=== PATIENT | male | born 1955 | race Caucasian/White ===

== ENCOUNTER 2020-10-23 19:04 | Emergency (ER) | payer OTHER, SELFPAY ==
--- NOTE | 2020-10-23 19:12 | ED.DENTAL ---
HPI - Dental/Oral General Chief complaint: Dental/Oral Stated complaint: gum line pain Time Seen by Provider: 10/23/20 19:41 Source: patient and RN notes reviewed Mode of arrival: ambulatory Limitations: no limitations History of Present Illness HPI Narrative: 65-year-old male presents with concern for possible foreign body in his gum. He reports several days ago he seemed to get a piece of food, it Peppercorn, stuck in his gumline. He reports it is causing his gumline to be swollen and painful. He denies trouble breathing, difficulty swallowing, swollen tongue, fever. While the patient was in triage he reports he was able to remove the foreign body and it was a piece of chipped tooth. He reports the gumline is still swollen, painful MD Complaint: tooth pain Related Data Home Medications Medication Instructions Recorded Confirmed atorvastatin 40 mg tablet 40 mg PO DAILY 10/23/20 glipizide 5 mg tablet 5 mg PO DAILY 10/23/20 lisinopril 20 mg tablet 20 mg PO DAILY 10/23/20 oxybutynin chloride 5 mg 5 mg PO DAILY 10/23/20 tablet,extended release 24 hr temazepam 30 mg capsule 30 mg PO QHS PRN 10/23/20 Allergies Allergy/AdvReac Type Severity Reaction Status Date / Time No Known Allergies Allergy Mild Verified 10/23/20 14:44 Review of Systems Review of Systems: Narrative: CONSTITUTIONAL: Denies malaise, chills, sweats, or fever. ENT: Denies fullness, swollen tongue, difficulty swallowing. Reports foreign body in the gumline under tooth #32 which she was able to remove, has a swollen, painful gumline surrounding the foreign body RESPIRATORY: Denies dyspnea. SKIN: Denies rash or itching. MUSCULOSKELETAL: Denies myalgia. NEUROLOGIC: Denies numbness, weakness, or headache. All systems reviewed & are unremarkable except as noted in HPI and below PMFSH Past Medical History Medical History (Updated 10/23/20 @ 19:59 by Freida Nunez NP) Diabetes High cholesterol Hypertension Surgical History Surgical History (Updated 10/23/20 @ 14:48 by Chen Romeo) Above knee amputation of right lower extremity S/P laparoscopy S/P left inguinal hernia repair Family History Family History (Updated 10/23/20 @ 14:48 by Chen Romeo) Father Diabetes mellitus Unknown Diabetes mellitus Hypertension Kidney disease Social History Social History (Updated 10/23/20 @ 14:48 by Chen Romeo) Smoking status: Former smoker Alcohol intake: never Comments At time of signature, agree with nursing past medical, surgical, social and family history. There is no relevant family history pertinent to the presenting complaint Exam Narrative: Exam Narrative: GENERAL: Well-appearing, well-nourished, and in no acute distress. HEAD: Normocephalic, atraumatic. EYES: PERRLA, conjunctivae clear ENT: Nares clear. Mucous membranes moist. Oropharynx without edema, erythema or lesions. Tonsils not enlarged and without exudate. Broken teeth, caries under tooth number 32 next to the tongue a white foreign body was noted, patient was able to remove the foreign body, the area remains erythematous, edematous. No other foreign body noted NECK: Supple. CHEST: No respiratory distress. Speaks in full sentences. HEART: Regular rate and rhythm. SKIN: Warm, dry, no rash. NEURO: Alert and oriented x3. PSYCH: Normal mood and affect Course Course Emergency Course: Patient is aware of diagnosis, understands and agrees to treatment plan. Anticipatory guidance given. Patient agrees to follow-up as directed and is aware of reasons to seek care at the emergency department. Portions of this record may have been created with voice recognition software Vital Signs Vital signs: Reviewed. MDM - Dental/Oral MDM Narrative Medical decision making narrative: Exam findings show no acute concerns or changes; patient is non-toxic appearing and is in no distress. Patient is appropriate for outpatient treatment and follow-up.
[2020-10-23 19:13] VITALS: BP 152/85; PULSE 102; RESP 16; TEMP 37.3; O2SAT 99
== END 2020-10-23 20:01 | disposition home or self-care (01) ==
PROVIDERS: Emergency Provider Nurse Practitioner
DX: S00.552A Superficial foreign body of oral cavity, initial encounter (principal); X58.XXXA Exposure to other specified factors, initial encounter; E11.9 Type 2 diabetes mellitus without complications; E78.00 Pure hypercholesterolemia, unspecified; I10 Essential (primary) hypertension; Z89.611 Acquired absence of right leg above knee; Z87.891 Personal history of nicotine dependence
CPT/HCPCS: 99213; G0463

== ENCOUNTER → 2020-11-26 15:26 | Outpatient (CLI) | payer OTHER, SELFPAY ==
--- NOTE | ~2020-11-26 | US_ITS ---
EXAMINATION: US soft tissue groin LT DATE: 11/26/2020 16:00 INDICATION: Left groin lump. TECHNIQUE: Multiple grayscale and Doppler ultrasound images of the left inguinal region were obtained . COMPARISON: None FINDINGS: There is a normal lymph node in the patient's area of concern in left inguinal region. No s pecific evidence of a hernia. IMPRESSION: 1. No abnormal mass or lymphadenopathy in the patient's area of concern in left inguinal region. Reviewed, dictated and finalized at location A.
== END ==
PROVIDERS: PCP Family Medicine Adolescent Medicine; Visit Provider Surgery
DX: R22.2 Localized swelling, mass and lump, trunk (principal)
CPT/HCPCS: 76882

== ENCOUNTER 2021-03-21 12:28 | Emergency (ER) | payer OTHER, SELFPAY ==
[2021-03-21 12:42] VITALS: BP 164/82; PULSE 101; RESP 16; TEMP 36.3; O2SAT 98
--- NOTE | 2021-03-21 12:43 | ED.SKABFB ---
HPI - Skin/Abscess/Foreign Bdy General Chief complaint: Skin/Abscess/Foreign Body Stated complaint: spider bite Time Seen by Provider: 03/21/21 13:07 Source: patient and RN notes reviewed Mode of arrival: ambulatory Limitations: no limitations History of Present Illness HPI narrative: 66-year-old male presents with concern for possible bites on his left hand. He reports he noticed the areas yesterday. Reports 3 itchy spots on his left hand. He denies pain, drainage, surrounding redness or warmth. Reports he put nail turkish on the spots to stop the itching. He denies any general malaise, fever. He denies any known injury or trauma. MD complaint: insect bite/sting Related Data Home Medications Medication Instructions Recorded Confirmed atorvastatin 40 mg tablet 40 mg PO DAILY 10/23/20 10/28/20 glipizide 5 mg tablet 5 mg PO DAILY 10/23/20 10/28/20 lisinopril 20 mg tablet 20 mg PO DAILY 10/23/20 10/28/20 oxybutynin chloride 5 mg 5 mg PO DAILY 10/23/20 10/28/20 tablet,extended release 24 hr temazepam 30 mg capsule 30 mg PO QHS PRN 10/23/20 10/28/20 Allergies Allergy/AdvReac Type Severity Reaction Status Date / Time No Known Allergies Allergy Mild Verified 10/23/20 14:44 Review of Systems Review of Systems: CONSTITUTIONAL: Denies malaise, chills, sweats, or fever. ENT: Denies polyps, swelling, CARDIOVASCULAR: Denies chest pain, palpitations, or edema. RESPIRATORY: Denies cough or dyspnea. SKIN: Reports 3 red raised itchy spots on the left hand MUSCULOSKELETAL: Denies muscle skeletal pain or or myalgia. NEUROLOGIC: Denies numbness, weakness All systems reviewed & are unremarkable except as noted in HPI and below PMFSH Past Medical History Medical History (Updated 03/21/21 @ 13:21 by Freida Nunez NP) Diabetes High cholesterol Hypertension Surgical History Surgical History Above knee amputation of right lower extremity S/P laparoscopy S/P left inguinal hernia repair Family History Family History Father Diabetes mellitus Unknown Diabetes mellitus Hypertension Kidney disease Social History Social History Smoking status: Former smoker Alcohol intake: never Comments At time of signature, agree with nursing past medical, surgical, social and family history. There is no relevant family history pertinent to the presenting complaint Exam Narrative: GENERAL: Well-appearing, well-nourished, and in no acute distress. HEAD: Normocephalic, atraumatic. EYES: PERRLA, conjunctivae clear ENT: Mucous membranes moist. NECK: Supple. No lymphadenopathy CHEST: Clear to auscultation. No respiratory distress. HEART: Regular rate and rhythm. SKIN: Warm, dry. 3 erythematous papules noted to the left hand, 2 on the first digit, 1 on the second digit. No fluctuation, induration, redness noted NEURO: Alert and oriented x3. PSYCH: Normal mood and affect Course Course Emergency Course: Patient is aware of diagnosis, understands and agrees to treatment plan. Anticipatory guidance given. Patient agrees to follow-up as directed and is aware of reasons to seek care at the emergency department. Portions of this record may have been created with voice recognition software Vital Signs Vital signs: Reviewed. Patient has history of hypertension MDM - Skin/Abscess/Foreign Bdy MDM Narrative Medical decision making narrative: Does not appear at this time to be erythema multiforme, bullous, SJS, TEN; no evidence at this time to suggest RMSF, endocarditis or Lyme disease; patient looks well, nontoxic and is tolerating oral intake; no neurologic signs or symptoms; no headache, photophobia or neck pain; afebrile; appropriate for initial outpatient treatment; discussed the importance of follow-up, patient agrees; question, viral exanthema, contact dermatitis
== END 2021-03-21 13:27 | disposition home or self-care (01) ==
PROVIDERS: Emergency Provider Nurse Practitioner
DX: S60.562A Insect bite (nonvenomous) of left hand, initial encounter (principal); W57.XXXA Bitten or stung by nonvenomous insect and other nonvenomous arthropods, initial encounter; E11.9 Type 2 diabetes mellitus without complications; E78.00 Pure hypercholesterolemia, unspecified; I10 Essential (primary) hypertension
CPT/HCPCS: 99213; G0463

== ENCOUNTER 2021-12-13 15:21 | Outpatient (CLI) | payer OTHER, SELFPAY ==
--- NOTE | ~2021-12-13 | US_ITS ---
EXAMINATION: US soft tissue head and neck DATE: 12/13/2021 15:59 INDICATION: Right posterior neck lump TECHNIQUE: Multiple grayscale and Doppler ultrasound images of the region of concern at the posterior right side of the neck were obtained. COMPARISON: None FINDINGS: 3.0 x 2.2 x 0.8 cm fusiform mass in the subcutaneous tissues at the region of concern. The mass is is oechoic and with similar echotexture and internal septated architecture as the surrounding subcutaneo us fat. IMPRESSION: 1. Nonspecific 3.0 x 2.2 x 0.8 cm diffuse form subcutaneous mass at the region of concern with appear ance most consistent with and statistically most likely to represent a lipoma. Reviewed, dictated and finalized at location A. IMPRESSION: 1. Nonspecific 3.0 x 2.2 x 0.8 cm diffuse form subcutaneous mass at the region of concern with appearance most consistent with and statistically most likely t o represent a lipoma.
== END 2021-12-13 15:22 | disposition home or self-care (01) ==
PROVIDERS: PCP Family Medicine Adolescent Medicine; Visit Provider Physician Assistant
DX: R22.1 Localized swelling, mass and lump, neck (principal)
CPT/HCPCS: 76536

== ENCOUNTER 2024-02-16 05:14 | Day surgery (SDC) | payer OTHER, SELFPAY ==
[2024-02-12 13:16] VITALS: BMI 29.7
[2024-02-16 12:26] VITALS: BP 128/75; PULSE 111; RESP 20; TEMP 36.4; O2SAT 96
[2024-02-16 12:29] LABS: Glucose Point of Care 186 mg/dl (65-105)
[2024-02-16] MEDS: LACTATED RINGERS 1,000 ML 150 ML IV CONT (12:38)
--- NOTE | 2024-02-16 12:48 | P.PNAN_ITS ---
Anes - Initial Pre Proc Eval Procedure: Operation Date: 02/16/24 13:30 Proposed Procedures p Colonoscopy - Rohit Huggins MD Date/Time: 02/16/24 12:48 Surgeon: Rohit Huggins MD Pre Op Diagnosis: Fecal Abnormalities Patient Data Age: 69 Gender: M Height: 1.7 m Weight: 72.1 kg Last Vital Signs Temp 36.4 C L 02/16/24 12:26 Pulse 111 H 02/16/24 12:26 Resp 20 02/16/24 12:26 BP 128/75 02/16/24 12:26 Pulse Ox 96 02/16/24 12:26 O2 Del Method Room Air 02/16/24 12:26 Allergies Allergy/AdvReac Type Severity Reaction Status Date / Time No Known Allergies Allergy Mild Verified 02/16/24 12:23 Home Medications Medication Instructions Recorded Confirmed Type escitalopram oxalate 20 mg tablet 20 mg PO DAILY #30 tabs 05/15/22 02/16/24 Rx gabapentin 300 mg capsule 600 mg PO QHS #40 caps 10/04/23 02/16/24 Rx lisinopril 20 mg tablet 20 mg PO DAILY #90 tabs 10/13/23 02/16/24 Rx glimepiride 2 mg tablet 2 mg PO DAILY #90 tabs 12/31/23 02/16/24 Rx rosuvastatin 40 mg tablet 40 mg PO DAILY #90 tabs 02/07/24 02/16/24 Rx clonazepam 2 mg tablet 2 mg PO QHS #30 tabs 02/11/24 02/16/24 Rx tramadol 50 mg tablet 100 mg PO BID PRN pain #80 tabs 02/11/24 02/16/24 Rx multivitamin with minerals-folic 1 tablet PO DAILY 02/12/24 02/16/24 History acid 12 mcg chewable tablet (Centrum Adults) pioglitazone 30 mg tablet (Actos) 30 mg PO DAILY 02/12/24 02/16/24 History Laboratory Tests 02/16/24 12:26 POC Capillary Glucose 186 H mg/dl (65-105) Patient hx anesthesia problems: none Family hx anesthesia problems: none Results Review: All pre-operative results and documents have been reviewed as part of the pre-operative evaluation. [facility] Past Medical History Medical History Diabetes High cholesterol Hypertension Nicotine dependence, cigarettes, uncomplicated Surgical History Surgical History Above knee amputation of right lower extremity (2008) Traumatic History of lumbar surgery S/P laparoscopy S/P left inguinal hernia repair Family History Family History Father Diabetes mellitus Unknown Diabetes mellitus Hypertension Kidney disease Grandparent Acute myocardial infarction Heart disease Mother Kidney disease Other Asthma Social History Social History Years smoked: 10 Smoking status: Current every day smoker Tobacco type: cigars Second hand tobacco smoke exposure: No Alcohol intake: never Substance use: current Substance use type: marijuana Living arrangements: alone Occupation/Education: retired Gender identity (if verbalized by the patient): Male Sexual Orientation (if Verbalized by the Patient): Straight or Heterosexual Spiritual care concerns: No Agree to blood products: Yes Anes - Eval Final PreProcedure Day of Procedure 02/16/24 12:48 Patient weight: normal Heart: regular rate and rhythm Lungs: clear to auscultation Airway: Mallampati scale class II Neurological: alert and oriented Last oral intake: >/= 8 hours ASA classification: III Emergent: no Anesthetic plan: proceed Anesthesia type and monitoring: general GIVS and standard monitoring Results Review: All pre-operative results and documents have been reviewed as part of the pre- operative evaluation. Informed Consent: The patient's anesthetic plan and its attendant risks and benefits were discussed with the patient/family/POA. Questions were solicited and answers provided to the satisfaction of the patient/family/POA.
--- NOTE | 2024-02-16 13:16 | PM.HPGS ---
History of Present Illness History of Present Illness Consent: Risks, benefits, and alternatives have been discussed and questions answered. Patient agrees to proceed with procedure. Chief complaint: Fecal Abnormalities Narrative: Luis Armando Jin is a 69 year old male here for first colonoscopy, occult blood in stool was positive Review of Systems Review of Systems: All systems reviewed & are unremarkable except as noted in HPI and below PMFSH Past Medical History Medical History Diabetes High cholesterol Hypertension Nicotine dependence, cigarettes, uncomplicated Surgical History Surgical History Above knee amputation of right lower extremity (2008) Traumatic History of lumbar surgery S/P laparoscopy S/P left inguinal hernia repair Family History Family History Father Diabetes mellitus Unknown Diabetes mellitus Hypertension Kidney disease Grandparent Acute myocardial infarction Heart disease Mother Kidney disease Other Asthma Social History Social History Years smoked: 10 Smoking status: Current every day smoker Tobacco type: cigars Second hand tobacco smoke exposure: No Alcohol intake: never Substance use: current Substance use type: marijuana Living arrangements: alone Occupation/Education: retired Gender identity (if verbalized by the patient): Male Sexual Orientation (if Verbalized by the Patient): Straight or Heterosexual Spiritual care concerns: No Agree to blood products: Yes Meds Home Medications and Allergies Home Medications Medication Instructions Recorded Confirmed Type escitalopram oxalate 20 mg tablet 20 mg PO DAILY #30 tabs 05/15/22 02/16/24 Rx gabapentin 300 mg capsule 600 mg PO QHS #40 caps 10/04/23 02/16/24 Rx lisinopril 20 mg tablet 20 mg PO DAILY #90 tabs 10/13/23 02/16/24 Rx glimepiride 2 mg tablet 2 mg PO DAILY #90 tabs 12/31/23 02/16/24 Rx rosuvastatin 40 mg tablet 40 mg PO DAILY #90 tabs 02/07/24 02/16/24 Rx clonazepam 2 mg tablet 2 mg PO QHS #30 tabs 02/11/24 02/16/24 Rx tramadol 50 mg tablet 100 mg PO BID PRN pain #80 tabs 02/11/24 02/16/24 Rx multivitamin with minerals-folic 1 tablet PO DAILY 02/12/24 02/16/24 History acid 12 mcg chewable tablet (Centrum Adults) pioglitazone 30 mg tablet (Actos) 30 mg PO DAILY 02/12/24 02/16/24 History Allergies Allergy/AdvReac Type Severity Reaction Status Date / Time No Known Allergies Allergy Mild Verified 02/16/24 12:23 Vital Signs Vital Signs - 24 hr 02/16/24 12:26 Temperature 97.5 F L Pulse Rate 111 H Respiratory Rate 20 Blood Pressure 128/75 Pulse Oximetry 96 Oxygen Delivery Room Air Exam Const: General: comfortable and no acute distress HENMT: Face/Nose/Sinus: Normal nares present Eyes: General: appearance normal, both eyes and all related structures Neck: Neck: no JVD Resp: Auscultation: clear to auscultation bilaterally Cardio: Rate: regular rate Rhythm: regular rhythm GI: Inspection: non-distended GI Palp: Yes Soft to palpation Skin: General skin exam: normal color Neuro: General: gait normal Speech: normal speech Extrem: General: normal to inspection Psych: Mental Status: mental status grossly normal Assessment and Plan Assessment and plan (1) Positive FIT (fecal immunochemical test): Code(s): R19.5 - Other fecal abnormalities Status: Acute Assessment and Plan: colonoscopy
[2024-02-16 13:37] VITALS: BP 93/52; PULSE 73; RESP 20; O2SAT 99
[2024-02-16 13:47] VITALS: BP 100/58; PULSE 66; RESP 20; O2SAT 99
[2024-02-16 13:48] LABS: Glucose Point of Care 134 mg/dl (65-105)
[2024-02-16 13:55] VITALS: BP 102/55; PULSE 67; RESP 20; O2SAT 96
== END 2024-02-16 14:14 | disposition home or self-care (01) ==
PROVIDERS: PCP Family Medicine Adolescent Medicine; Referring Provider Nurse Practitioner Family; Visit Provider Internal Medicine Gastroenterology
PROC: 0DJD8ZZ Inspection of Lower Intestinal Tract, Via Natural or Artificial Opening Endoscopic (ICD-10-PCS; CPT 45378; principal; 2024-02-16 13:30)
DX: R19.5 Other fecal abnormalities (principal); Q27.33 Arteriovenous malformation of digestive system vessel; E11.9 Type 2 diabetes mellitus without complications; E78.00 Pure hypercholesterolemia, unspecified; I10 Essential (primary) hypertension; F17.290 Nicotine dependence, other tobacco product, uncomplicated; F12.90 Cannabis use, unspecified, uncomplicated; Z79.84 Long term (current) use of oral hypoglycemic drugs
CPT/HCPCS: 45381; 45388; 82948; J2003; J2704; J7120